=== PATIENT | female | born 1965 | race Caucasian/White ===

== ENCOUNTER 2020-09-12 21:32 | Emergency (ER) | payer OTHER ==
[2016-02-06 13:40] VITALS: BP 140/80
[~2020-09-12 21:32] MED LIST: ALBU2.5V8 IH; AZIT250T6 PO; HYDR-3165 PO; PRED20TA PO
[2020-09-12] MEDS ORDERED: ACETAMINOPHEN 500 MG TABLET PO ONE (22:45)
[2020-09-12] MEDS ORDERED: cloNIDine TTS-2 1 PATCH PATCH TD ONE (22:45)
--- NOTE | 2020-09-12 22:48 | PHYS DOC ---
Past History Past Medical History: Anxiety, Arthritis, Diabetes, High Cholesterol, Hypertension Past Surgical History: Other Alcohol Use: None Drug Use: None General Adult EDM: Chief Complaint: LOWEREXTREMITY INJURY HPI: HPI: ".. I was out at my sister 's house in [facility].. and we moved the table.. and I slipped on some food on the floor.. and went down hard on this Lt. knee... it my good leg..It is still so painful..." " My knee..it is purple and swo llen,,, My calf.. and My foot hurt..,,, My upper leg hurts.. I hurts my hip to walk.. My low back hurt.s.. this is all on my good side.. the Lt side.. My Rt is messed up .. that is old stuff.. so I depend on my Lt side..." ( Crying) Patient is a 55 year old female who presents with above hx and complaints of fall with injury to Lt. Knee, entire left leg and hip, pain in her lower lumbar and abdomen. Fall occurred approximately 1900 hrs. when she slipped on some food after Easter dinner with her sister. Patient did manage to drive to [place] with her grandson. However pain has grown more severe so she presented to the emergency department for further evaluation. Patient has longstanding history of arthritis, diabetes, hypertension, and elevated cho lesterol. Patient follows at [facility] for medical issues. No recent travel outside the [facility] area. No specific ill contacts. Review of Systems: Review of Systems: Constitutional: Denies fever or chills Eyes: Denies change in visual acuity HENT: Denies nasal congestion or sore throat Respiratory: Denies cough or shortness of breath Cardiovascular: Denies chest pain or edema GI: Complains of lower left abdominal pain, nausea,. Denies vomiting, bloody stools or diarrhea : Denies dysuria Musculoskeletal: Complains of lower lumbar pain hip and pelvic pain and entire left lower leg pain. Integument: Denies rash Neurologic: Denies headache, focal weakness or sensory changes Endocrine: Denies polyuria or polydipsia Lymphatic: Denies swollen glands Psychiatric: History of anxiety Family History: Family History: Noncontributory Current Medications: Current Meds: Current Medications Medications (Trade) Dose Ordered Sig/Marcelo Start Time Stop Time Status Last Admin Dose Admin Acetaminophen (Tylenol) 1,000 mg 1X ONCE 09/12/20 22:45 09/12/20 22:46 UNV Clonidine HCl (Catapres Tts-2) 1 patch 1X ONCE 09/12/20 22:45 09/12/20 22:46 UNV Allergies: Allergies: Allergies Coded Allergies Type Severity Reaction Last Updated Verified aspirin Allergy Severe Swelling 02/04/16 Yes Physical Exam: PE: Constitutional: Reports she is in acute distress, patient crying and appears very uncomfortable in appearance. [] HENT: Normocephalic, atraumatic, bilateral external ears normal, oropharynx moist, no oral exudates, nose normal. [] Eyes: PERRLA, EOMI, conjunctiva normal, no discharge. [] Neck: Normal range of motion, no tenderness, supple, no stridor. [] Cardiovascular: Tachycardia heart rate regular rhythm, no murmur [] Lungs & Thorax: Bilateral breath sounds equal apex with scattered wheezes on auscultation [] Abdomen: Bowel sounds normal, soft, lower abdomen and pelvic tenderness, no masses, distended abdomen no pulsatile masses. Old surgery scars Skin: Warm, dry, no erythema, no rash. Poor turgor. Obvious ecchymosis on left thigh and knee Back: Lumbar tenderness, no CVA tenderness. [] Extremities: No tenderness, no cyanosis, no clubbing, ROM intact, no edema. Except the entire left lower leg is tender. Arthritic changes. Right leg history of old injury and arthritic changes. Cries out in pain with any movement of left leg. Did manage to do straight leg lift with encouragement in left leg. Movement of knee exacerbated pain has obvious swelling and ecchymosis. Distal pulses are equal to right leg Neurologic: Alert and oriented X 3, normal motor function, normal sensory function, no focal deficits noted. [] Psychologic: Affect anxious tearful, judgement normal, mood depressed EKG: EKG: [] Radiology/Procedures: Radiology/Procedures: [[address] [address] IMAGING REPORT Signed PATIENT: MORENO DRIVER ACCOUNT: [id number] : 1965 LOCATION: ER AGE: 55 SEX: F EXAM STATUS: REG ER ORD. PHYSICIAN: MADAI JIMENEZ MD REASON: fall- PROCEDURE: KNEE LEFT 4V XR KNEE _4 VIEWS WITH PATELLA_LT 09/12/2020 10:51 PM INDICATION: Fall COMPARISON: None available. TECHNIQUE: 4 views of the left knee are provided. FINDINGS/ IMPRESSION: No significant knee joint effusion. There is no acute fracture or dislocation. Joint spaces are maintained. Bone mineralization is within normal limits. Regional soft tissues are within normal limits. There is no soft tissue gas or osseous erosion. No radiopaque foreign body. Patellar enthesopathy is noted. Vascular calcifications are present. Electronically signed by: Ary Bennett MD (09/12/2020 11:23 PM) [facility] [place]IGNED BY: ARY BENNETT MD DATE: 09/12/202322 CC: MADAI JIMENEZ MD; PCP,NO ~MTH0 0 ][place] [address] IMAGING REPORT Signed PATIENT: MORENO DRIVER ACCOUNT: [id number] : 1965 LOCATION: ER AGE: 55 SEX: F EXAM STATUS: REG ER ORD. PHYSICIAN: MADAI JIMENEZ MD REASON: pain lumber PROCEDURE: CT LUMBAR SPINE WO CONTRAST CT ABDOMEN+PELVIS WO, CT LUMBAR SPINE WO History: Reason: pain lumber / Spl. Instructions: / History: Abdominal pain. Technique: Noncontrast examination of the abdomen and pelvis. Coronal and sagittal reconstructions were performed. CT lumbar spine. Coronal and sagittal reconstructions were performed. Exposure: One or more of the following individualized dose reduction techniques were utilized for this examination: 1. Automated exposure control 2. Adjustment of the mA and/or kV according to patient size 3. Use of iterative reconstruction technique. Comparison: None Findings: CT abdomen and pelvis: Lower chest: No consolidation or pleural effusion. Coronary artery ca lcifications. Abdomen and pelvis: Hepatic steatosis. Cholelithiasis. Contracted gallbladder. Left adrenal adenoma measures 2.6 cm. The spleen, and pancreas are unremarkable. Punctate nonobstructing left intrarenal calculus. No hydronephrosis. Prior appendectomy. Postoperative changes small bowel. No evidence of bowel obstruction. No pathologic lymphadenopathy. Atheromatous plaque throughout the nonaneurysmal abdominal aorta and branch vessels. No ascites. Bones: No pathologic osseous lesions. CT lumbar spine: Normal vertebral body height and alignment. No fracture. Mild multilevel degenerative disc changes. Multilevel facet arthropathy most prominent L4-5. No high-grade canal or neuroforaminal narrowing. Impression: CT abdomen and pelvis: 1. No acute abdominal or pelvic pathology. 2. Cholelithiasis with contracted gallbladder. 3. Hepatic steatosis. 4. Small nonobstructing left intrarenal calculus. No hydronephrosis. CT lumbar spine: 1. No acute fracture or subluxation of the lumbar spine. 2. Mild multilevel lumbar spondylosis. Electronically signed by: Maurisio Fish DO (09/13/2020 2:03 AM) [id number] [address] [place] [id number] IMAGING REPORT Signed PATIENT: MORENO DRIVER ACCOUNT: [id number] : 1965 LOCATION: ER AGE: 55 SEX: F EXAM STATUS: REG ER ORD. PHYSICIAN: MADAI JIMENEZ MD REASON: fall PROCEDURE: LEFT FEMUR XRAY XR FEMUR_LEFT 1 VIEW, XR LT TIBIA + FIBULA History: Reason: fall / Spl. Instructions: / History: . Pain Technique: 2 views left femur and 2 views left tibia and fibula Comparison: None. Findings: Left femur: Normal alignment of the left hip. No fracture. Vascular calcifications. Left tibia and fibula: Acute nondisplaced fracture of the proximal fibula best seen on lateral view. Normal alignment. Vascular calcifications. Well-corticated ossification inferior to the lateral malleolus, likely related to prior trauma or degenerative changes. Impression: 1. Acute nondisplaced left proximal fibular fracture. Electronically signed by: Maurisio Fish DO (09/13/2020 2:11 AM) [id number] DICTATED AND SIGNED BY: MAURISIO FISH DO DATE: 09/13/20 0209 CC: MADAI JIMENEZ MD; PCP,NO ~MTH0 0 Heart Score: C/O Chest Pain: N/A Risk Factors: Risk Factors: DM, Current or recent (<one month) smoker, HTN, HLP, family history of CAD, obesity. Risk Scores: Score 0 - 3: 2.5% MACE over next 6 weeks - Discharge Home Score 4 - 6: 20.3% MACE over next 6 weeks - Admit for Clinical Observation Score 7 - 10: 72.7% MACE over next 6 weeks - Early Invasive Strategies Course & Med Decision Making: Course & Med Decision Making Pertinent Labs and Imaging studies reviewed. (See chart for details) Patient refusing procedures and then agreeing procedures and then again refusing procedures. Requested narcotic meds however since patient is driving herself I advised these cannot be given., use some else is going to be driving her home. Patient eventually completed x-rays of the areas of most tenderness. Did find a nondisplaced fracture of the left upper fibula. Splint applied. Distal neurovascular appears intact. Patient to elevate left leg. Patient follow-up with orthopedics. Take Tylenol and ibuprofen for pain. Use ice packs as needed. Return if any concerns. Follow-up primary care. Impression: 1. Slip and fall 2. Contusions over entire left leg and hip 3 . Nondisplaced fracture proximal Lt. fibular neck [] Yasir Disclaimer: Yasir Disclaimer: This electronic medical record was generated, in whole or in part, using a voice recognition dictation system. Departure Departure: Referrals: PCP,MIKEY (PCP) MADAI JIMENEZ MD Sep 12, 2020 22:48
[2020-09-12] MEDS ORDERED: IV RINGERS SOLUTION,LACTATED 1,000 ML IV SCH (23:15)
[2020-09-12] MEDS ORDERED: KETOROLAC 30 MG/ML VIAL. IVP ONE (23:15)
[2020-09-12] MEDS ORDERED: ONDANSETRON PF 4 MG/2 ML VIAL. IVP ONE (23:15)
[2020-09-12] MEDS ORDERED: FAMOTIDINE 20 MG/2 ML VIAL IVP ONE (23:15)
--- NOTE | 2020-09-12 23:26 | RAD ---
XR KNEE _4 VIEWS WITH PATELLA_LT 09/12/2020 10:51 PM INDICATION: Fall COMPARISON: None available. TECHNIQUE: 4 views of the left knee are provided. FINDINGS/ IMPRESSION: No significant knee joint effusion. There is no acute fracture or dislocation. Joint spaces are maint ained. Bone mineralization is within normal limits. Regional soft tissues are within normal limits. T here is no soft tissue gas or osseous erosion. No radiopaque foreign body. Patellar enthesopathy is n oted. Vascular calcifications are present. Electronically signed by: Melissa Piper MD (09/12/2020 11:23 PM) [facility]
--- NOTE | 2020-09-13 02:05 | RAD ---
CT ABDOMEN+PELVIS WO, CT LUMBAR SPINE WO History: Reason: pain lumber / Spl. Instructions: / History: Abdominal pain. Technique: Noncontrast examination of the abdomen and pelvis. Coronal and sagittal reconstructions we re performed. CT lumbar spine. Coronal and sagittal reconstructions were performed. Exposure: One or more of the following individualized dose reduction techniques were utilized for thi s examination: 1. Automated exposure control 2. Adjustment of the mA and/or kV according to patient size 3. Use of iterative reconstruction technique. Comparison: None Findings: CT abdomen and pelvis: Lower chest: No consolidation or pleural effusion. Coronary artery calcifications. Abdomen and pelvis: Hepatic steatosis. Cholelithiasis. Contracted gallbladder. Left adrenal adenoma m easures 2.6 cm. The spleen, and pancreas are unremarkable. Punctate nonobstructing left intrarenal ca lculus. No hydronephrosis. Prior appendectomy. Postoperative changes small bowel. No evidence of bowel obstruction. No pathologi c lymphadenopathy. Atheromatous plaque throughout the nonaneurysmal abdominal aorta and branch vessel s. No ascites. Bones: No pathologic osseous lesions. CT lumbar spine: Normal vertebral body height and alignment. No fracture. Mild multilevel degenerative disc changes. Multilevel facet arthropathy most prominent L4-5. No high- grade canal or neuroforaminal narrowing. Impression: CT abdomen and pelvis: 1. No acute abdominal or pelvic pathology. 2. Cholelithiasis with contracted gallbladder. 3. Hepatic steatosis. 4. Small nonobstructing left intrarenal calculus. No hydronephrosis. CT lumbar spine: 1. No acute fracture or subluxation of the lumbar spine. 2. Mild multilevel lumbar spondylosis. Electronically signed by: Maurisio Fish DO (09/13/2020 2:03 AM) [id number]
--- NOTE | 2020-09-13 02:13 | RAD ---
XR FEMUR_LEFT 1 VIEW, XR LT TIBIA + FIBULA History: Reason: fall / Spl. Instructions: / History: . Pain Technique: 2 views left femur and 2 views left tibia and fibula Comparison: None. Findings: Left femur: Normal alignment of the left hip. No fracture. Vascular calcifications. Left tibia and fibula: Acute nondisplaced fracture of the proximal fibula best seen on lateral view. Normal alignment. Vascular calcifications. Well-corticated ossification inferior to the lateral malle olus, likely related to prior trauma or degenerative changes. Impression: 1. Acute nondisplaced left proximal fibular fracture. Electronically signed by: Maurisio Fish DO (09/13/2020 2:11 AM) [id number]
--- NOTE | 2020-09-13 02:15 | RAD ---
XR ABDOMEN COMP ACUTE History: Reason: pain / Spl. Instructions: / History: Technique: Upright and supine views of the abdomen. Comparison: None. Findings: No consolidation or pleural effusion. No pneumothorax. Normal heart size. Densities within the region of the left rotator cuff, may indicate calcific tendinosis. Mild small bowel gas. Air and stool scattered throughout the colon. Postop changes within the region of the rectum. Vascular stent projecting over the right inguinal region. Vascular calcination locatio n. Multilevel lumbar spondylosis. Impression: 1. No acute cardiopulmonary process. 2. Nonobstructed bowel gas pattern. Electronically signed by: Maurisio Fish DO (09/13/2020 2:13 AM) [id number]
== END 2020-09-13 03:45 | disposition home or self-care (01) ==
LOC: ER 21:32
DX: S82.492A Other fracture of shaft of left fibula, initial encounter for closed fracture (principal); S70.02XA Contusion of left hip, initial encounter; S80.12XA Contusion of left lower leg, initial encounter; M54.5 Low back pain; R10.2 Pelvic and perineal pain; F41.9 Anxiety disorder, unspecified; M19.90 Unspecified osteoarthritis, unspecified site; E11.9 Type 2 diabetes mellitus without complications; E78.00 Pure hypercholesterolemia, unspecified; I10 Essential (primary) hypertension; Z88.6 Allergy status to analgesic agent; W01.0XXA Fall on same level from slipping, tripping and stumbling without subsequent striking against object, initial encounter; Y93.89 Activity, other specified; Y92.89 Other specified places as the place of occurrence of the external cause; Y99.8 Other external cause status
CPT/HCPCS: 29515; 72131; 73552; 73564; 73590; 74022; 74176; 99285-25